=== PATIENT | female | born 1970 | race Caucasian/White ===

== ENCOUNTER 2019-05-24 06:28 | Day surgery (SDC) | payer OTHER, SELFPAY ==
[2019-05-18 10:42] VITALS: BMI 20.2
[2019-05-24] VITALS (17 sets, daily range): BP systolic 98–145; BP diastolic 59–85; PULSE 75–100; RESP 11–18; TEMP 36.1–36.9; O2SAT 97–100; BMI 19.5
--- NOTE | 2019-05-24 | PATH_ITS ---
[facility] Accession Number: [id number] . 01 Material submitted: . uterus - UTERUS, BILATERAL FALLOPIAN TUBES, BILATERAL OVARIES AND FIBROIDS . 02 Diagnosis: Uterus, Bilateral Fallopian Tubes And Ovaries, Hysterectomy, Bilateral Salpingo-oophorectomy: Uterus with multiple benign leiomyomas, negative for atypia. Inactive/non-cycling endometrium, negative for hyperplasia and atypia. Bilateral fallopian tubes with endosalpingiosis. Bilateral ovaries with a few small benign follicular and hemorrhagic cysts. No evidence of epithelial neoplasia or malignancy. [facility] 05/26/2019 1458 Local . 02 Electronically signed: . Jenise Pak MD, Pathologist NPI- [id number] . 01 Gross description: . The specimen is received in a formalin-filled container labeled uterus, bilateral fallopian tubes, bilateral ovaries and fibroids and consists of numerous unoriented soft tissue fragments grossly consistent with previously fragmented uterus, 15.5 x 14.4 x 4.3 cm in aggregate. Further inspection reveals a 5.5 x 0.6 cm fimbriated fallopian tube with underlying attached 3.2 x 1.7 x 1.5 cm ovary which have a combined weight of 10.0 grams. Identified is a second fimbriated fallopian tube 4.5 x 0.6 cm with an underlying attached 3.6 x 3.0 x 1.6 cm ovary which have a combined weight of 12.0 grams. After removal of the fallopian tube and ovaries, the remaining uterine fragments have a combined weight of 100.0 grams. The cervix is not grossly identified. The scant uterine serosa is hemorrhagic chapa smooth to ragged. Sectioning reveals multiple chapa-white whorled bulging well-delineated subserosal myometrial uterine nodules, 0.5 cm up to 5.1 cm, which severely distort the uterine fragments. The scant possible endometrium is pink-chapa up to less than 0.1 cm in thickness. The uninvolved myometrium is chapa trabeculated up to 2.3 cm in thickness. . Both fallopian tubes are pink-chapa smooth and intact and sectioning of both tubes reveals unremarkable cut surfaces with a pinpoint lumen. Both ovaries are chapa smooth and nodular. Sectioning of both ovaries reveals multiple uniloculated and multilocated thin-walled clear to straw-colored fluid-filled cystic cavities up to 1.0 cm which abut the serosal surfaces. The cyst linings are chapa smooth and unremarkable. The remaining ovarian cut surfaces are unremarkable. . [employer] sections are submitted as follows: A1-A3 -uterus, including possible endometrium and myometrium; A4-A5 - largest uterine nodule (each tissue from the same nodule); A6-A7 - each second and third largest uterine nodules respectively (each cassette contains tissue from a single nodule); A8 - additional door to door sales representative sections of uterine nodules (each tissue from a separate uterine nodule); A9 - longer fimbriated fallopian tube; A10 - ovary associated with longer tube; A11 - opposing fimbriated fallopian tube; A12-A13 - opposing ovary. ([id number]) /[facility] 05/25/2019 1703 Local . 02 Pathologist provided ICD-10: N93.9 . 02 CPT . 843345 Performed at: 01 [facility] [address] [id number] MD Cal Nicholson MD Phone: [phone] Performed at: [facility] [address] [place] [address] [id number] MD Jenise Pak MD Phone: [phone]
--- NOTE | 2019-05-24 07:36 | PM.PREOP ---
Pre-operative Note Interval Note History & Physical reviewed/Exam performed by Physician: Yes Changes to H&P: No
[2019-05-24] MEDS: LACTATED RINGERS 1,000 ML 100 ML IV ×2 (07:43→09:28)
[2019-05-24] MEDS: MIDAZOLAM 2 MG/2 ML VIAL IV (07:48)
--- NOTE | 2019-05-24 07:49 | SUR.PREOP ---
SPOKE WITH DR. LUNDBERG REGARDING CURRENT ORDER FOR ANCEF IN REGARDS TO PT DRUG ALLERGY TO PCN. PER DR. LUNDBERG OK TO CONTINUE WITH CURRENT PLAN TO USE ANCEF. COMMUNICATED THIS WITH CIRCULATING RN. AFTER IV MIDAZOLAM GIVEN, PT TAKEN DIRECTLY INTO THE OR IN STABLE CONDITION. PT ALERT AND TALKING TO STAFF.
[2019-05-24] MEDS: CEFAZOLIN 2 GM/100 ML FROZ.PIGGY IV (07:55)
--- NOTE | 2019-05-24 08:42 | SUR.OPER ---
Lithotomy on padded OR bed. [place] Pad Positioner under torso. Head on pillow, arms padded and tucked at sides. Legs secured in padded yellow fins stirrups.
[2019-05-24] MEDS: ROPIVACAINE 0.2% PF 2 MG/ML 10ML AMP 20 ML INJ (08:49)
[2019-05-24] MEDS: BUPIVACAINE 0.5% W/ EPI (PF) VIAL 30 ML INJ (08:49)
[2019-05-24] MEDS: fentaNYL 100 MCG/2 ML INJ IV ×2 (10:31→10:40)
[2019-05-24] MEDS: OXYCODONE/ACETAMINOPHEN 5/325 TABLET 1 TAB PO ×3 (10:37→16:40)
--- NOTE | 2019-05-24 11:45 | SUR.PHASEI ---
Pt transferred to room 213 via bed with all belongings. Last vital signs stable and pt verbalizes that pain is tolerable at a 3/10. Report given to JAIRO Fernandes prior to transfer. Dena at bedside upon arrival to room 213; handoff assessment completed. Dena to assume care of pt at this time.
--- NOTE | 2019-05-24 12:26 | PC.NURSE ---
Addendum entered by Dena Ivey R.N. 05/24/19 13:28: Patient tolerating full liquid diet without nausea. Rates abdominal pain 5/10 given one percocet. Addendum entered by Dena Ivey R.N. 05/24/19 12:41: Patient up to bathroom, voided 550cc clear yellow urine, bladder scan PVR 0cc. Original Note: Patient alert,oriented, rates left abdominal pain 3/10 given 1 percocet in Pacu. Sarbjit nausea. Oriented to room and call light.
--- NOTE | 2019-05-24 16:31 | PC.NURSE ---
Addendum entered by Lisa Damon R.N. 05/24/19 17:33: Pt medicated with 1 percocet prior to DC. All belongings/DC paperwork with her, she was assisted into wheelchair and wheeled to ER entrance by MIGUEL, pt's mother to drive her home via private car. Addendum entered by Lisa Damon R.N. 05/24/19 16:35: Patient voided 300 ml urine at 1530, reports able to empty bladder. We talked about the need to avoid constipation, drinking plenty of fluids, getting OTC stool softener or laxative. Original Note: DC notes: Marly resting in bed, Ox3 and conversive. VS stable. Reports pain managed with percocet given previous. DC paperwork reviewed with her and her Mother, prescription for Percocet given to them. 2x2 to umbilicus mostly saturated with sero-sang, I changed the 2x2 drsg with tegaderm to secure, 2 steri strips observed at site are CDI. No redness or swelling observed to lap sites. Pt aware to DC gauze drsgs after showering tomorrow, per DC orders. I instructed her to call Dr Machado's office in AM to make 2 week follow up appointment. Pt denies other needs/concerns at this time. IV to LAC removed, pressure drsg applied. Mother assisting her to get dressed at this time.
--- NOTE | 2019-06-07 07:57 | PM.GYNOP.1 ---
Operative Date/Time/Diagnoses Date of procedure: 05/24/19 Time of procedure: 09:45 Pre-op diagnosis: Fibroid uterus Dysmenorrhea Menorrhagia Post-op diagnosis: same Procedure & Clinicians Procedure: Procedures Operation Date: 05/24/19 07:45 Actual Procedures Side Surgeon p Laparoscopic Supracervical Hysterectomy w/ bilateral salpingo-oophorectomy and lysis of adhesions Lara Machado MD Indications: Dysmenorrhea Menorrhagia Fibroid uterus Surgeon: Lara Machado [employer] Engineer: Luca Rivas Anesthesia Type: General Operative Notes Findings: Eight week size multifibroid uterus Left paratubal cyst Omental to right lower quadrant abdominal wall adhesions Normal ovaries Normal right tube Normal liver, gallbladder, and appendix Closure Type: primary Specimen(s): left tube & ovary, right tube & ovary and uterus Applied: catheter (Removed at the end of the case) Estimated blood loss (mL): 75 Blood products transfused: none Procedure in detail: The patient was taken to the operating room where she was placed in the dorsal supine position. After adequate general endotracheal anesthesia was achieved, she was placed in the dorsal lithotomy position, and prepped and draped in the usual sterile fashion. A timeout was performed. A bivalve speculum was placed into the vagina and the anterior lip of the cervix grasped with a single-tooth tenaculum. The cervical os was sequentially dilated until the ZUMI uterine manipulator could pass easily into the endometrial cavity. The single-tooth tenaculum was removed from the anterior lip of the cervix, and the bivalve speculum was removed from the vagina. Attention was then turned to the abdomen where 6 mL of half percent Marcaine with epinephrine were injected in the umbilical fold. A 5 mm incision was made. The veress needle was placed into the peritoneal cavity, and its placement confirmed by aspiration and drop test. The veress needle was removed. A 5 mm trocar was placed without difficulty. 2 other incisions were made midway between the pubic symphysis and umbilicus after 5 mL of half percent Marcaine with epinephrine were injected. These were 5 mm incisions. Two, 5 mm trocars were placed under direct visualization. The omental adhesion was grasped with an atraumatic grasper, and using the PlasmaKinetic, the omentum was cauterized and cut. Hemostasis was achieved. The right tube and ovary were grasped with an atraumatic grasper. Using the plasma kinetic with settings of 40 W the infundibulopelvic ligament on the right side was cauterized and cut. The cornua of the uterus was then grasped with an atraumatic grasper. The utero-ovarian ligaments were cauterized and cut. The round ligament and broad ligament were cauterized and cut with plasma kinetic. Hemostasis was achieved. The bladder flap was created using the plasma kinetic with cautery and cut fci across. The uterine arteries on the right side were extensively cauterized with plasma kinetic. All of this was repeated on the left side. The remainder of the bladder flap was created using the plasma kinetic, and the bladder taken down off the lower uterine segment and cervix. Using the [place], the cervix was amputated from the uterus 2 cm above the uterosacral ligaments, after the ZUMI uterine manipulator was removed from the uterus and a moistened sponge stick was placed in the vagina. There was a small amount of bleeding noted from the posterior edge of the cervix, and this was cauterized for hemostasis. The endocervix was extensively cauterized with the PlasmaKinetic. 6 mL of half percent Marcaine with epinephrine were injected above the pubic symphysis. A 12mm incision was made. A 12 mm trocar was placed under direct visualization. The trochar was removed. An Endobag was placed through the suprapubic incision and the uterus placed into the Endobag. The uterus was morcellated in approximately 8 pieces. The tubes and ovaries were also removed from the Endobag. The Endobag was removed from the peritoneal cavity. The pelvis was copiously irrigated with warm normal saline. No bleeding was noted. 20 mL of 0.2% ropivacaine were placed over the pelvic pedicles. The instruments were removed from the abdomen. The CO2 was allowed to escape. The suprapubic incision was closed on the fascia with 0 Vicryl. All of the incisions were closed with 4-0 Biosyn in a subcuticular fashion. Steri strips, 2x2's and op sites were placed over the incisions. The moistened sponge stick was removed from the vagina. Sponge, lap, and instrument counts were correct x 2. The patient tolerated the procedure well and was taken to PACU in stable condition. Complications: none Post-operative Condition: stable Disposition: PACU Plan for aftercare: Home after recovery
== END 2019-05-24 16:45 | disposition home or self-care (01) ==
LOC: OR 06:30 → AC 06:31
PROVIDERS: PCP Physician Assistant; Visit Provider Obstetrics & Gynecology
PROC: 0UT94ZL Resection of Uterus, Supracervical, Percutaneous Endoscopic Approach (ICD-10-PCS; CPT 58542; principal; 2019-05-24 07:45)
DX: D25.9 Leiomyoma of uterus, unspecified (principal); N94.89 Other specified conditions associated with female genital organs and menstrual cycle; N83.202 Unspecified ovarian cyst, left side; N83.201 Unspecified ovarian cyst, right side; N83.02 Follicular cyst of left ovary; N83.01 Follicular cyst of right ovary
CPT/HCPCS: 58542; 94762; J0690; J1100; J1885; J2250; J2405; J2704; J2795; J3010

== ENCOUNTER → 2021-07-24 17:32 | Outpatient (CLI) | payer OTHER, SELFPAY ==
[2019-05-24 11:45] VITALS: BMI 19.5
--- NOTE | 2021-07-24 | DI.MG.S_ITS ---
BILATERAL DIGITAL SCREENING MAMMOGRAM 3D/2D WITH CAD: 07/24/2021 CLINICAL: Routine screening. Family history of breast cancer. No prior exams were available for comparison. The tissue of both breasts is heterogeneously dense. This may lower the sensitivity of mammography. Current study was also evaluated with a Computer Aided Detection (CAD) system. No significant masses, calcifications, or other findings are seen in either breast. IMPRESSION: NEGATIVE There is no mammographic evidence of malignancy. A 1 year screening mammogram is recommended. This exam was interpreted at Station ID: [id number]. NOTE: For mammograms, a report in lay terms will be sent to the patient. Approximately 15% of breast malignancies will not be visualized mammographically. In the management of a palpable breast mass, a negative mammogram must not discourage biopsy of a clinically suspicious lesion. Electronically Signed By: Javier gaffney/bon:07/25/2021 09:35:21 letter sent: Normal Exam ACR BI-RADS Category 1: Negative [id number]
== END ==
PROVIDERS: PCP Physician Assistant; Referring Provider Physician Assistant; Visit Provider Physician Assistant
DX: Z12.31 Encounter for screening mammogram for malignant neoplasm of breast (principal); Z80.3 Family history of malignant neoplasm of breast
CPT/HCPCS: 77063; 77067

== ENCOUNTER → 2023-10-14 08:47 | Outpatient (CLI) | payer OTHER, MEDICAID, SELFPAY ==
[2019-05-24 11:45] VITALS: BMI 19.5
--- NOTE | 2023-10-14 08:48 | DI.MG.S_ITS ---
BILATERAL DIGITAL SCREENING MAMMOGRAM 3D/2D WITH CAD: 10/14/2023 CLINICAL: Routine screening. Family history of breast cancer. Comparison is made to exam dated: 07/24/2021 mammogram - [facility]. Both breasts are heterogeneously dense, which may obscure small masses (category c / 51-75% glandular tissue). Current study was also evaluated with a Computer Aided Detection (CAD) system. No significant masses, calcifications, or other findings are seen in either breast. There has been no significant interval change. IMPRESSION: NEGATIVE There is no mammographic evidence of malignancy. A 1 year screening mammogram is recommended. Based on the Tyrer Cuzick model (a risk assessment model) the patient's lifetime risk is 10.8% and her 10 year risk is 2.9%. According to the ACR, ACS, and NCCN guidelines, an annual breast MRI exam along with mammogram is recommended if the patient's lifetime risk is 20% or greater. This exam was interpreted at Station ID: [id number]. NOTE: For mammograms, a report in lay terms will be sent to the patient. Approximately 15% of breast malignancies will not be visualized mammographically. In the management of a palpable breast mass, a negative mammogram must not discourage biopsy of a clinically suspicious lesion. Electronically Signed By: Javier gaffney/bon:10/14/2023 12:43:36 letter sent: Normal Exam ACR BI-RADS Category 1: Negative [id number]
== END ==
PROVIDERS: PCP Physician Assistant; Referring Provider Physician Assistant; Visit Provider Physician Assistant
DX: Z12.31 Encounter for screening mammogram for malignant neoplasm of breast (principal); Z80.3 Family history of malignant neoplasm of breast; R92.333 Mammographic heterogeneous density, bilateral breasts
CPT/HCPCS: 77063; 77067

== ENCOUNTER → 2024-11-30 17:31 | Outpatient (CLI) | payer OTHER, SELFPAY ==
[2019-05-24 11:45] VITALS: BMI 19.5
--- NOTE | 2024-11-30 17:35 | DI.MG.S_ITS ---
MM screening mammo BI: 11/30/2024. BI-RADS: 1 CLINICAL: 54-year old female for bilateral screening mammogram. Tyrer-Cuzick lifetime risk of 11.1%. No personal or first-degree family history of breast cancer. Current reported family history of breast cancer: paternal aunt. PRIOR EXAMS 10/14/2023, 07/24/2021. MAMMOGRAPHY TECHNIQUE: 2D and 3D (tomosynthesis) digital mammographic views obtained, with additional images as needed for full coverage. Current study was also evaluated with a Computer Aided Detection (CAD) system. DENSITY C. The breasts are heterogeneously dense, which may obscure small masses. MAMMOGRAPHY FINDINGS Bilateral: No suspicious mass, asymmetry, microcalcification, or other abnormality seen. IMPRESSION: * No evidence of malignancy. RECOMMENDATIONS Bilateral * Annual screening mammography. OVERALL ASSESSMENT CATEGORY BI-RADS-1: Negative. The [employer] recommends annual screening mammography beginning at age 40 for women with average risk of breast cancer. ELECTRONICALLY SIGNED: Gonzalo Adams M.D. on 12/01/2024 at 01:47:47 PM PT Interpreting Station ID: [id number]
== END ==
PROVIDERS: PCP Physician Assistant; Referring Provider Physician Assistant; Visit Provider Physician Assistant
DX: Z12.31 Encounter for screening mammogram for malignant neoplasm of breast (principal); Z80.3 Family history of malignant neoplasm of breast
CPT/HCPCS: 77063; 77067